=== PATIENT | male | born 1985 | race Caucasian/White ===

== ENCOUNTER 2022-08-08 17:54 | Emergency (ER) | payer BC, SELFPAY ==
[2022-08-08 18:00] VITALS: BP 131/67; PULSE 101; RESP 20; TEMP 36.7; O2SAT 98
--- NOTE | 2022-08-08 18:00 | ED.URI ---
HPI - URI/Sore Throat General Chief Complaint: Upper Respiratory Infection Stated Complaint: cold flu Time Seen by Provider: 08/08/22 18:03 Source: patient and RN notes reviewed Mode of arrival: ambulatory Limitations: no limitations History of Present Illness HPI Narrative: 36-year-old male presents with concern for cough that is worsening the last 3 days. He denies fever, aches, chills, sweats. Reports some nasal drainage. Reports taking Mucinex without relief. He denies shortness of breath MD elicited complaint: cough and sore throat Related Data Home Medications Medication Instructions Recorded Confirmed glimepiride 4 mg tablet 4 mg PO DIRECTED 08/08/22 08/08/22 lisinopril 20 mg tablet 20 mg PO DIRECTED 08/08/22 08/08/22 metformin 1,000 mg tablet 1,000 mg PO DIRECTED 08/08/22 08/08/22 rosuvastatin 10 mg tablet 10 mg PO DIRECTED 08/08/22 08/08/22 Allergies Allergy/AdvReac Type Severity Reaction Status Date / Time No Known Allergies Allergy Verified 08/08/22 18:08 Review of Systems Review of Systems: CONSTITUTIONAL: Denies malaise, chills, sweats, or fever. EYES: Denies visual changes, redness, or discharge. ENT: Reports rhinorrhea. Denies congestion, sinus pain, otalgia and sore throat. CARDIOVASCULAR: Denies chest pain, palpitations, or edema. RESPIRATORY: Reports cough. Denies dyspnea. GASTROINTESTINAL: Denies abdominal pain, nausea, vomiting, diarrhea SKIN: Denies rash or itching. MUSCULOSKELETAL: Denies myalgia. NEUROLOGIC: Denies headache. All systems reviewed & are unremarkable except as noted in HPI and below PMFSH Comments At time of signature, agree with nursing past medical, surgical, social and family history. There is no relevant family history pertinent to the presenting complaint Exam Narrative: GENERAL: Well-appearing, well-nourished, and in no acute distress. HEAD: Normocephalic EYES: PERRLA, conjunctivae clear ENT: Nares clear, turbinates edematous and erythematous, clear discharge. Mucous membranes moist. TM pearly diaz with sharp light reflex bilaterally; no tragal tenderness. Oropharynx not erythematous without lesions. Tonsils not enlarged and without exudate, no drooling, no hoarseness, no trismus, uvula midline. NECK: Supple. No lymphadenopathy CHEST: Clear to auscultation, breath sounds equal. No wheezing, rhonchi, rales, or stridor. No respiratory distress, speaks in full sentences. Cough noted HEART: Regular rate and rhythm. No murmur heard. SKIN: Warm, dry, no rash. NEURO: Alert and oriented x3. PSYCH: Normal mood and affect Course Course Emergency Course: Patient is aware of diagnosis, understands and agrees to treatment plan. Anticipatory guidance given. Patient agrees to follow-up as directed and is aware of reasons to seek care at the emergency department. Portions of this record may have been created with voice recognition software Level of Care: Express Care Visit Vital Signs Vital signs: Reviewed. MDM - URI/Sore Throat MDM Narrative Medical decision making narrative: Differential diagnosis considered: Berg virus, strep pharyngitis, allergic rhinitis, upper respiratory tract infection, sinusitis, rhinosinusitis, nasopharyngitis. viral pharyngitis, otitis media, otitis externa, pneumonia, bronchitis, viral cough syndrome, viral syndrome, and influenza. Exam findings show no acute concerns or changes; patient is non-toxic appearing and is in no distress. Patient is appropriate for outpatient treatment and follow-up. Lab Data Attestation: I reviewed the patient's lab results. Critical Care Time Critical Care Time Critical Care Time: No Discharge Plan Discharge Clinical Impression: Bronchitis Patient Disposition: Home, Self-Care Condition: Stable Instructions: Acute Bronchitis (ED) Additional Instructions: Your rapid influenza test is negative Viral illness may last between 7-21 days; antibiotics do not cure viral illness and are NOT r
[2022-08-08 18:10] VITALS: BP 131/67; PULSE 101; RESP 20; TEMP 36.7; O2SAT 98
== END 2022-08-08 18:18 | disposition home or self-care (01) ==
PROVIDERS: Emergency Provider Nurse Practitioner
DX: J40 Bronchitis, not specified as acute or chronic (principal); E78.00 Pure hypercholesterolemia, unspecified; I10 Essential (primary) hypertension; E11.9 Type 2 diabetes mellitus without complications
CPT/HCPCS: 87804; 99213; G0463

== ENCOUNTER 2022-10-18 08:13 | Emergency (ER) | payer BC, SELFPAY ==
[2022-10-18 08:17] VITALS: BP 140/81; PULSE 96; RESP 18; TEMP 36.4; O2SAT 97
--- NOTE | 2022-10-18 08:24 | ED.URI ---
HPI - URI/Sore Throat General Chief Complaint: Upper Respiratory Infection Stated Complaint: Sinus Congestion Time Seen by Provider: 10/18/22 08:25 Source: patient and RN notes reviewed History of Present Illness HPI Narrative: Patient is a 37-year-old male who presents to urgent care with complaints of congestion, scratchy throat, fever. Patient states the congestion started a couple days ago and the fever and the sore throat started last night. Patient has been taking Benadryl and ibuprofen. Denies any nausea or vomiting. Denies any ill exposures. No other acute complaints. No acute distress noted. Patient aware of the plan care. Some parts of this dictation were generated by voice recognition software and may contain typographical and/or grammatical inaccuracies. Related Data Home Medications Medication Instructions Recorded Confirmed glimepiride 4 mg tablet 4 mg PO DIRECTED 08/08/22 10/18/22 lisinopril 20 mg tablet 20 mg PO DIRECTED 08/08/22 10/18/22 metformin 1,000 mg tablet 1,000 mg PO DIRECTED 08/08/22 10/18/22 rosuvastatin 10 mg tablet 10 mg PO DIRECTED 08/08/22 10/18/22 Allergies Allergy/AdvReac Type Severity Reaction Status Date / Time No Known Allergies Allergy Verified 10/18/22 08:28 Review of Systems Review of Systems: CONSTITUTIONAL: Reports fever EYES: Denies visual changes, redness, or discharge. ENT: Reports of congestion, sore throat postnasal drainage CARDIOVASCULAR: Denies chest pain, palpitations, or edema. RESPIRATORY: Denies cough or dyspnea. GASTROINTESTINAL: Denies abdominal pain, nausea, vomiting, or diarrhea. GENITOURINARY: Denies dysuria or hematuria. SKIN: Denies rash or itching. MUSCULOSKELETAL: Denies back pain, joint pain, or myalgia. NEUROLOGIC: Denies headache, numbness, or weakness. All other systems reviewed are negative, except as documented in HPI. Exam Narrative: GENERAL: This is a well-nourished, well-developed patient, in no apparent distress. HEAD: normocephalic, atraumatic. EYES: PERRL. Sclera clear/white. Vision is grossly intact. EARS: External ears normal, auditory canals clear and without drainage, retracted a fused left TM. Right TM normal without perforation. Hearing grossly intact. NOSE: External nose normal with no obvious nasal discharge, nares without redness, no rhinorrhea. THROAT: Mucous membranes moist, mild erythema of posterior pharynx with mild bilateral tonsillar edema without exudate. Moderate postnasal drainage NECK: Neck supple, non-tender without lymphadenopathy CARDIOVASCULAR: Regular rate and rhythm without murmurs, gallops, or rubs. RESPIRATORY: Clear to auscultation. Breath sounds equal bilaterally. No wheezes, rales, or rhonchi. SKIN: warm, intact with no suspicious lesions or rash, good texture and turgor. NEURO: awake, alert, and oriented to person, place and time. There were no obvious focal neurologic abnormalities. EXTREMITIES: No clubbing, cyanosis, or edema. Course Course Level of Care: Express Care Visit Vital Signs Vital signs: Vital Signs Temperature 97.6 F 10/18/22 08:17 Pulse Rate 96 10/18/22 08:17 Respiratory Rate 18 10/18/22 08:17 Blood Pressure 140/81 10/18/22 08:17 Pulse Oximetry 97 10/18/22 08:17 Oxygen Delivery Room Air 10/18/22 08:17 Temperature 97.6 F 10/18/22 08:17 Pulse Rate 96 10/18/22 08:17 Respiratory Rate 18 10/18/22 08:17 Blood Pressure 140/81 10/18/22 08:17 Pulse Oximetry 97 10/18/22 08:17 Oxygen Delivery Room Air 10/18/22 08:17 Reviewed MDM - URI/Sore Throat MDM Narrative Medical decision making narrative: Reviewed lab results with the patient. Aware that strep was positive. Advised the patient to complete the oral antibiotic as prescribed. Be sure to eat and drink with the medication. Use Tylenol/ibuprofen as needed for fevers or pain. Continue a daily antihistamine such as Zyrtec/Claritin or Benadryl. Be aware that you are considered contagi
== END 2022-10-18 08:55 | disposition home or self-care (01) ==
PROVIDERS: Emergency Provider Nurse Practitioner Family
DX: J02.0 Streptococcal pharyngitis (principal)
CPT/HCPCS: 87880; 99213; G0463

== ENCOUNTER 2023-03-15 13:30 | Emergency (ER) | payer BC, SELFPAY ==
[2023-03-15 13:40] VITALS: BP 136/75; PULSE 101; RESP 16; TEMP 36.9; O2SAT 98
--- NOTE | 2023-03-15 13:41 | ED.SKABFB ---
HPI - Skin/Abscess/Foreign Bdy General Chief complaint: Skin/Abscess/Foreign Body Stated complaint: Body Rash Source: patient and RN notes reviewed History of Present Illness HPI narrative: 37-year-old male presents to urgent care with an itchy and burning rash. Patient states it started on his left arm yesterday and today with it all over his body. Pt states he worked in the yard earlier in the week. Denies any other new meds, foods, detergents, etc. Related Data Home Medications Medication Instructions Recorded Confirmed glimepiride 4 mg tablet 4 mg PO DIRECTED 08/08/22 03/15/23 lisinopril 20 mg tablet 20 mg PO DIRECTED 08/08/22 03/15/23 metformin 1,000 mg tablet 1,000 mg PO DIRECTED 08/08/22 03/15/23 rosuvastatin 10 mg tablet 10 mg PO DIRECTED 08/08/22 03/15/23 Allergies Allergy/AdvReac Type Severity Reaction Status Date / Time No Known Allergies Allergy Verified 03/15/23 13:41 Review of Systems Review of Systems: CONSTITUTIONAL: Denies fever, chills, or sweats. EYES: Denies visual changes, redness, or discharge. ENT: Denies otalgia and sore throat CARDIOVASCULAR: Denies chest pain, palpitations, or edema. RESPIRATORY: Denies cough or dyspnea. GASTROINTESTINAL: Denies abdominal pain, nausea, vomiting, or diarrhea. GENITOURINARY: Denies dysuria or hematuria. SKIN: Rash MUSCULOSKELETAL: Denies back pain, joint pain, or myalgia. NEUROLOGIC: Denies headache, numbness, or weakness. Pertinent positives per HPI. PMFSH Comments At the time of my signature, I reviewed and agree with the nursing past medical, surgical, social, and family history. There is no relevant family history pertinent to the patient complaint. Exam Narrative: GENERAL: This is a well-nourished, well-developed patient, in no apparent distress. HEAD: normocephalic, atraumatic. EYES: Sclera clear/white. Vision is grossly intact. EARS: External ears normal, auditory canals clear and without drainage. Hearing grossly intact. NOSE: External nose normal with no obvious nasal discharge, nares without redness, no rhinorrhea. THROAT: Mucous membranes moist, posterior pharynx clear. NECK: Neck supple, non-tender without lymphadenopathy, masses or thyromegaly. CARDIOVASCULAR: Regular rate RESPIRATORY: No respiratory distress SKIN: Erythemic patches and papules noted to various spots on body including trunk, bilateral arms, and face NEURO: awake, alert, and oriented to person, place and time. There were no obvious focal neurologic abnormalities. EXTREMITIES: No clubbing, cyanosis, or edema. No joint tenderness, effusion, or edema noted. BACK: Nontender without deformity or crepitus. No flank tenderness. Course Course Level of Care: Express Care Visit Vital Signs Vital signs: Vital Signs Temperature 98.4 F 03/15/23 13:40 Pulse Rate 101 H 03/15/23 13:40 Respiratory Rate 16 03/15/23 13:40 Blood Pressure 136/75 03/15/23 13:40 Pulse Oximetry 98 03/15/23 13:40 Oxygen Delivery Room Air 03/15/23 13:40 Temperature 98.4 F 03/15/23 13:40 Pulse Rate 101 H 03/15/23 13:40 Respiratory Rate 16 03/15/23 13:40 Blood Pressure 136/75 03/15/23 13:40 Pulse Oximetry 98 03/15/23 13:40 Oxygen Delivery Room Air 03/15/23 13:40 Reviewed MDM - Skin/Abscess/Foreign Bdy MDM Narrative Medical decision making narrative: Prevention is always better than treatment. Learn to identify poison sukhwinder, oak, and sumac and avoid it. Wear long sleeves, long pants, shoes, and socks. If you touched the plant, try to keep your hands away from your eyes, mouth, and face. Wash the skin thoroughly with soap and cool water as soon as possible. Scrub under the fingernails with a brush to prevent spreading of the resin to other parts of the body by touching or scratching. Remember to wash any clothing with soap and hot water as the resin can persist for many months and cause further dermatitis. Use calamine lotion on the affect
== END 2023-03-15 13:46 | disposition home or self-care (01) ==
PROVIDERS: Emergency Provider Nurse Practitioner Family
DX: L25.9 Unspecified contact dermatitis, unspecified cause (principal); E78.00 Pure hypercholesterolemia, unspecified; I10 Essential (primary) hypertension; E11.9 Type 2 diabetes mellitus without complications
CPT/HCPCS: 99213; G0463

== ENCOUNTER 2023-03-26 12:11 | Emergency (ER) | payer BC, SELFPAY ==
[2023-03-26 12:14] VITALS: BP 132/56; PULSE 104; RESP 20; TEMP 36.6; O2SAT 98
--- NOTE | 2023-03-26 12:28 | ED.SKABFB ---
HPI - Skin/Abscess/Foreign Bdy General Chief complaint: Skin/Abscess/Foreign Body Stated complaint: Rash History of Present Illness HPI narrative: Pt is a 37 y/o male, presents to with persistent pruritic rash despite completing 10 days of a 12 day prednisone taper. He admits to applying topical Alcohol to his skin repeatedly for relief. He is not taking any other oral medications or applying topical products otherwise. He notes the rash spread from the onset 10 days ago from the left antecubital space and face to the chest and right arm, upper thighs and ankle in the days after his visit. The rash has not spread any further since that date but persists, remains pruritic and fink at times. He has no throat tongue or lip swelling. He denies drainage or honey crusting to any skin surfaces. He has no other complaints today Related Data Home Medications Medication Instructions Recorded Confirmed glimepiride 4 mg tablet 4 mg PO DIRECTED 08/08/22 03/15/23 lisinopril 20 mg tablet 20 mg PO DIRECTED 08/08/22 03/15/23 metformin 1,000 mg tablet 1,000 mg PO DIRECTED 08/08/22 03/15/23 rosuvastatin 10 mg tablet 10 mg PO DIRECTED 08/08/22 03/15/23 Allergies Allergy/AdvReac Type Severity Reaction Status Date / Time No Known Allergies Allergy Verified 03/15/23 13:41 Review of Systems Integumentary/Breasts: Comments: refer to HPI Exam Const: General: cooperative, healthy appearing, comfortable, no acute distress, well developed, alert, awake and Physically active Nutritional Appearance: average body habitus and well nourished Orientation/consciousness: oriented to person, oriented to place, oriented to time and patient oriented x3 Limitations: no limitations HENMT: Head: normal to inspection, No palpable skull fracture present and normocephalic Ears: hearing grossly normal bilaterally, external ears normal and TM's normal bilaterally Mouth: Yes Normal oral and palatal mucosa present, Yes lip normal and Yes tongue normal Throat: posterior oropharynx normal, tonsils normal and uvula midline Eyes: General: appearance normal, both eyes and all related structures Visual Rahman: normal visual rahman by confrontation Alignment and Position: alignment normal Periorbital: periorbital findings abnormal (pt has allergic shiners present bilaterally, dry skin surfaces lower lids) Conjunctivae: conjunctivae normal Sclera: sclerae normal EOM: EOMs intact bilaterally Neck: Neck: normal visual inspection, full ROM, no lymphadenopathy, no meningeal signs and trachea midline Lymphatic: no lymphadenopathy noted Resp: Effort & Inspection: normal respiratory effort Auscultation: clear to auscultation bilaterally Cardio: Rate: regular rate Rhythm: regular rhythm GI: Inspection: normal to inspection Skin: Rashes: rashes noted (pt has dry skin patches to extremities and torso) Other: patchy eruptions noted to the left and right antecubital spaces with confluent light pink erythema/dry and flaky. He has linear brush like eruptions over the chest and neck, right flank and right upper thigh, ankles bilaterally, all appearing eczematous without raised papules, pustules or vesicles. No lymphangitis noted. No TTP Course Course Emergency Course: I suspect rash has persisted secondary to application of alcohol to the rash, further drying the skin surface out and contributing to itching. Plan to resume steroid taper due to the diffuseness of the skin surface affected, adding OTC antihistamines, stopping all topical products with the exception of aquaphor added recurrently during the day. pt is agreeable with plan Level of Care: Express Care Visit (62015) Vital Signs Vital signs: Vital Signs Temperature 36.6 C 03/26/23 12:14 Pulse Rate 104 H 03/26/23 12:14 Respiratory Rate 20 03/26/23 12:14 Blood Pressure 132/56 L 03/26/23 12:14 Pulse Oximetry 98 03/26/23 12:14 Oxygen Delivery Room Air 03/26/23 12:14 Temp
== END 2023-03-26 12:54 | disposition home or self-care (01) ==
PROVIDERS: Emergency Provider Nurse Practitioner Family
DX: L25.9 Unspecified contact dermatitis, unspecified cause (principal)
CPT/HCPCS: 99213; G0463